=== PATIENT | male | born 1960 | race Caucasian/White ===

== ENCOUNTER 2021-08-06 08:31 | Inpatient (IN) | payer BC ==
[~2021-08-06] VITALS: Ht 177.8 cm; Wt 86.3 kg
[2021-08-06 09:05] LABS: BASOPHILS % (AUTO) 0.4 % (0.0-2.0); EOSINOPHILS % (AUTO) 0.2 % (1.0-6.0); HEMATOCRIT 40.5 % (41-53); HEMOGLOBIN 14.2 g/dL (13.5-17.5); LYMPHOCYTES % (AUTO) 11.9 % (22.0-44.0); MEAN CORPUSCULAR VOLUME 86 fL (80-100); MONOCYTES # (AUTO) 0.4 K/uL (0.1-1.0); MONOCYTES % (AUTO) 4.4 % (2.0-9.0); NEUTROPHILS # (AUTO) 6.7 K/uL (1.8-7.7); NEUTROPHILS % (AUTO) 83.1 % (40.0-70.0); PLATELET COUNT (AUTO) 190 K/uL (150-450); RED BLOOD CELL COUNT(AUTO) 4.73 MIL/uL (4.50-5.90); RED CELL DISTRIBUTION WIDTH 12.6 % (11.5-14.5)
[2021-08-06 09:17] LABS: ANION GAP 8 mmol/L (8-16); CALCIUM, TOTAL 9.8 mg/dL (8.8-10.5); CARBON DIOXIDE 28 mmol/L (22-29); CHLORIDE 102 mmol/L (98-107); CREATININE 1.03 mg/dL (0.60-1.30); GLOMERULAR FILTR. RATE CALC > 60 mL/min (>60); GLUCOSE,RANDOM 152 mg/dL (70-110); POTASSIUM 3.6 mmol/L (3.5-5.1); SODIUM SERUM 138 mmol/L (136-145); UREA NITROGEN, BLOOD 13 mg/dL (7-18)
[2021-08-06 09:24] LABS: AMMONIA 14 umol/L (11-32)
[2021-08-06 09:25] LABS: LACTIC ACID 1.4 mmol/L (0.4-2.0)
[2021-08-06 09:42] LABS: ALANINE AMINOTRANSFERASE 30 U/L (12-78); ALBUMIN 4.3 g/dL (3.4-5.0); ALKALINE PHOSPHATASE 81 U/L (46-116); ASPARTATE AMINOTRANSFERASE 33 U/L (15-37); BILIRUBIN,TOTAL 0.9 mg/dL (0.1-1.0); CREATINE KINASE, TOTAL ONLY 387 U/L (39-308); TOTAL PROTEIN, SERUM 7.8 g/dL (6.4-8.2)
[2021-08-06] MEDS ORDERED: SODIUM CHLORIDE 0.9% 1,000 ML IV ONE (11:15)
[2021-08-06 11:38] LABS: APPEARANCE,URINE CLEAR (CLEAR); BILIRUBIN,URINE NEGATIVE (NEGATIVE); GLUCOSE, URINE (UA) NEGATIVE (NEGATIVE); LEUKOCYTE ESTERASE ,URINE NEGATIVE (NEGATIVE); NITRATE,URINE NEGATIVE (NEGATIVE); OCCULT BLOOD,URINE NEGATIVE (NEGATIVE); PH,URINE 5.5 (5.0-8.0); PROTEIN,URINE NEGATIVE (NEGATIVE); UROBILINOGEN,URINE <=1.0 mg/dL (<=1.0)
[2021-08-06 11:51] LABS: AMPHET/METH SCREEN,URINE NEGATIVE (NEGATIVE); BARBITURATE SCREEN, URINE NEGATIVE (NEGATIVE); BENZODIAZEPINES SCREEN,URINE NEGATIVE (NEGATIVE); CANNABINOID SCREEN,URINE NEGATIVE (NEGATIVE); COCAINE SCREEN,URINE NEGATIVE (NEGATIVE); METHADONE SCREEN, URINE NEGATIVE (NEGATIVE); OPIATE SCREEN,URINE NEGATIVE (NEGATIVE)
[2021-08-06 11:53] LABS: PHENCYCLIDINE SCREEN,URINE NEGATIVE (NEGATIVE)
[2021-08-06] MEDS ORDERED: MAG HYDROX/AL HYDROX/SIMETH ES 30 ML SUSPENSION UDCUP PO PRN (16:00)
[2021-08-06] MEDS ORDERED: LORazepam 2 MG TABLET PO PRN (16:00)
[2021-08-06] MEDS ORDERED: GuaiFENesin/D-METHORPHAN [SUGAR-FREE] 200-20MG/10 ML SYRUP UDCUP PO PRN (16:00)
[2021-08-06] MEDS ORDERED: ZOLPIDEM TARTRATE 10 MG TABLET PO PRN (16:00)
[2021-08-06] MEDS ORDERED: QUEtiapine FUMARATE 100 MG TABLET PO PRN (16:00)
[2021-08-06] MEDS ORDERED: LOPERAMIDE HCL 2 MG CAPSULE PO PRN ×2 (16:00)
[2021-08-06] MEDS ORDERED: TUBERCULIN, PURIFIED PROTEIN DERIVATIVE 5 TU/0.1 ML SYRINGE ID ONE (16:00)
[2021-08-06] MEDS ORDERED: ACETAMINOPHEN 325 MG TABLET PO PRN (16:00)
[2021-08-06] MEDS ORDERED: MAGNESIUM HYDROXIDE SUSPENSION 30 ML UDCUP PO PRN (16:00)
[2021-08-06] MEDS ORDERED: HydrOXYzine PAMOATE 50 MG CAPSULE PO PRN (16:00)
[2021-08-06 16:10] LABS: COVID AG,FIA SOURCE NASAL SWAB
[2021-08-06 16:44] LABS: THYROID STIMULATING HORMONE 0.52 uIU/mL (0.36-3.74)
[2021-08-06 16:56] LABS: CHOLESTEROL 228 mg/dL (131-200)
[2021-08-06 18:45] VITALS: BP 131/76
[2021-08-06] MEDS: THIAMINE 100 MG TABLET PO SCH (18:58)
[2021-08-06] MEDS ORDERED: DENTURE CLEANSER TABLET [8'S] DT PRN (20:45)
[2021-08-06] MEDS ORDERED: DENTURE ADHESIVE 68 GM CREAM DT PRN (20:45)
[2021-08-06] MEDS: MELATONIN 5 MG TABLET PO SCH (23:07)
[2021-08-07] MEDS: MODAFINIL 100 MG TABLET PO SCH (06:41)
[2021-08-07 06:43] VITALS: BP 126/74
[2021-08-07 08:00] VITALS: BP 149/81
[2021-08-07] MEDS ORDERED: NALTREXONE HCL 50 MG TABLET PO SCH (09:00)
[2021-08-07] MEDS: PARoxetine HCL 20 MG TABLET PO SCH (09:09)
[2021-08-07] MEDS: THIAMINE 100 MG TABLET PO SCH ×2 (09:10→17:14)
[2021-08-07] MEDS: FOLIC ACID 1 MG TABLET PO SCH (09:10)
[2021-08-07] MEDS: OMEGA-3/DHA/EPA/FISH OIL 1,000 MG CAPSULE PO SCH (09:10)
[2021-08-07] MEDS: MULTIVITAMINS WITH MINERALS, THERAPEUTIC TABLET PO SCH (09:10)
[2021-08-07 16:29] VITALS: BP 136/83
[2021-08-07] MEDS: MELATONIN 5 MG TABLET PO SCH (20:54)
[2021-08-08] MEDS: MODAFINIL 100 MG TABLET PO SCH (05:59)
[2021-08-08 08:06] VITALS: BP 116/61
[2021-08-08] MEDS: FOLIC ACID 1 MG TABLET PO SCH (08:08)
[2021-08-08] MEDS: PARoxetine HCL 20 MG TABLET PO SCH (08:08)
[2021-08-08] MEDS: OMEGA-3/DHA/EPA/FISH OIL 1,000 MG CAPSULE PO SCH (08:08)
[2021-08-08] MEDS: MULTIVITAMINS WITH MINERALS, THERAPEUTIC TABLET PO SCH (08:08)
[2021-08-08] MEDS: THIAMINE 100 MG TABLET PO SCH ×2 (08:08→17:00)
[2021-08-08 16:00] VITALS: BP 130/80
[2021-08-08] MEDS: MELATONIN 5 MG TABLET PO SCH (21:16)
[2021-08-09] MEDS: MODAFINIL 100 MG TABLET PO SCH (06:05)
[2021-08-09 08:08] VITALS: BP 134/86
[2021-08-09] MEDS: OMEGA-3/DHA/EPA/FISH OIL 1,000 MG CAPSULE PO SCH (08:17)
[2021-08-09] MEDS: FOLIC ACID 1 MG TABLET PO SCH (08:17)
[2021-08-09] MEDS: THIAMINE 100 MG TABLET PO SCH (08:17)
[2021-08-09] MEDS: MULTIVITAMINS WITH MINERALS, THERAPEUTIC TABLET PO SCH (08:17)
[2021-08-09] MEDS ORDERED: PARoxetine HCL 10 MG TABLET PO SCH (09:00)
[2021-08-09] MEDS ORDERED: PARO10TA71 PO (13:38)
[2021-08-09] MEDS ORDERED: MELA5TAB40 PO (13:38)
[2021-08-09] MEDS ORDERED: OMEG-108 PO (13:38)
[2021-08-09] MEDS ORDERED: MODA100T65 PO (13:44)
== END 2021-08-09 15:00 | disposition home or self-care (01) | DRG 918 ==
LOC: EMS 08:37 → EDBD 08:37 → 3EI 17:30
PROVIDERS: ADMIT Psychiatry & Neurology Psychiatry; ATTEND Psychiatry & Neurology Psychiatry
DX: T48.3X2A Poisoning by antitussives, intentional self-harm, initial encounter (principal); F32.2 Major depressive disorder, single episode, severe without psychotic features; Z20.822 Contact with and (suspected) exposure to COVID-19; Z59.9 Problem related to housing and economic circumstances, unspecified; Z91.51 Personal history of suicidal behavior; Z88.6 Allergy status to analgesic agent; Y92.89 Other specified places as the place of occurrence of the external cause
CPT/HCPCS: 70450; 71045; 80053; 81003; 82140; 82465; 82550; 83036; 83605; 84436; 84443; 84484; 85025; 86592; 87040; 93005; 99285; Q9967; 36415-L1; 36415-TC